=== PATIENT | female | born 2000 | race Caucasian/White ===

== ENCOUNTER 2025-07-10 17:15 | Emergency (ER) | payer OTHER, SELFPAY ==
--- NOTE | ~2025-07-10 | US_ITS ---
CLINICAL HISTORY: vaginal bleeding, approx 6 weeks, 1st preg US OB 1st Trimester transabdominal and transvaginal Comparison: None provided Findings: The uterus is anteverted and anteflexed. Uterus measures 6.8 cm in length. Normal morphology of the uterus. The endometrium measures up to 11 mm with some heterogeneity and tiny cystic areas. No definable gestational sac seen. Right ovary 1.6 x 2.9 x 1.8 cm. Left ovary 1.9 x 3.1 x 1.8 cm. Normal grayscale morphology of both ovaries. No free fluid in the pelvis. IMPRESSION: of unknown location. Differential includes very early , recent spontaneous or ectopic . Recommend serial beta HCG evaluation and follow-up ultrasound in 7 days. This document has been electronically signed by: Akira Fletcher MD on 07/10/2025 19:41:03
[2025-07-10 17:27] VITALS: BP 144/70; PULSE 92; RESP 18; TEMP 36.4; O2SAT 100; BMI 26.6
--- NOTE | 2025-07-10 17:28 | ED_ITS ---
HPI - General Adult General Chief complaint: Vaginal Bleeding Stated complaint: 5/6 weeks , bleeding Time Seen by Provider: 07/10/25 22:52 Source: patient Limitations: no limitations History of Present Illness ED Provider: Laureen Graff PA-C HPI narrative: 25-year-old female presents with concerns for miscarriage. Patient is a approximately 6 weeks , she began to have vaginal bleeding, consisting of spotting this morning. She passed an isolated small mucousy clot. Associated pelvic cramping. This is her 1st . She has pending follow up with her manager of sales. There has been no escalation of the bleeding. Related Data Allergies Allergy/AdvReac Type Severity Reaction Status Date / Time amoxicillin Allergy Hives Verified 07/10/25 17:32 Penicillins Allergy Hives Verified 07/10/25 17:31 Review of Systems 2 Review of Systems: Yes all other systems are reviewed and are negative Constitutional: Constitutional: Denies fatigue and Denies fever(s) Cardiovascular: Cardiovascular: Denies chest pain and Denies dyspnea Respiratory: Respiratory: Denies dyspnea Gastrointestinal: Gastrointestinal: Reports GI cramping, Denies nausea and Denies vomiting Genitourinary: Genitourinary: Reports pelvic pain and Denies vaginal discharge Comments: Spotting Endocrine: Endocrine: Denies fatigue PMFSH Past Medical History Attestation statement: The following information was validated with the patient. Social History Social History Advance Directives: No Advance Directives Information Provided: No Do you have a plan to hurt others: No Plan Physical Exam ED Vital Signs: Vital Signs - 24 hr 07/10/25 17:27 07/10/25 22:20 Temperature 97.5 F 98.3 F Pulse Rate 92 75 Respiratory Rate 18 17 Blood Pressure 144/70 H 129/80 Pulse Oximetry 100 100 Oxygen Delivery Method Room Air Room Air BMI result Body Mass Index 26.6 Const Other: Alert well-appearing Orientation/consciousness: patient oriented x3 Resp Effort & Inspection: normal respiratory effort Cardio Other: Normal peripheral perfusion GI Other: Soft nondistended nontender Other: Defer Skin Other: Warm dry no rash Neuro General: patient oriented x3, gait normal, no focal motor deficits and CN's II- XI intact bilaterally Psych Other: Tearful, cooperative Course Course Course Narrative: Rapid medical examination performed in triage by Chela Tellez PA-C: Patient is a 25 year old female presenting to the emergency department with vaginal bleeding + abdominal cramping. Patient states she is approximately 6 weeks and is now having bleeding and cramping. Detailed physical exam and review of systems are deferred to the practice clinician. Labs and imaging. Patient placed back in the waiting room pending room availability and results. Medical Decision Making Medical Decision Making [facility] Narrative: 25-year-old female presents with concerns for miscarriage. Patient is a approximately 6 weeks , she began to have vaginal bleeding, consisting of spotting this morning. She passed an isolated small mucousy clot. Associated pelvic cramping. This is her 1st . She has pending follow up with her manager of sales. There has been no escalation of the bleeding. Problem: Early History: Per patient is I have considered the following differential diagnoses: Subchorionic hemorrhage, threatened , ectopic, symptoms of early Plan: Screening labs including a beta hCG, transvaginal ultrasound obtained, this is either miscarriage versus early just not visualizing IUP versus on found ectopic. She requires follow up within a week for repeat transvaginal and serial hCG. The neglected to add on ABO Rh, we will do so in the event she requires RhoGAM. I have independently reviewed the following tests: Labs: No leukocytosis, not anemic, beta hCG 631, urine not infected, passing blood, which is likely vaginal source, A+ blood type Transvaginal ultrasound:Findings: The uterus is anteverted and anteflexed. Uterus measures 6.8 cm in length. Normal morphology of the uterus. The endometrium measures up to 11 mm with some heterogeneity and tiny cystic areas. No definable gestational sac seen. Right ovary 1.6 x 2.9 x 1.8 cm. Left ovary 1.9 x 3.1 x 1.8 cm. Normal grayscale morphology of both ovaries. No free fluid in the pelvis. IMPRESSION: of unknown location. Differential includes very early , recent spontaneous or ectopic . Recommend serial beta HCG evaluation and follow-up ultrasound in 7 days. Differential Diagnosis Differential Diagnoses: The differential diagnosis associated with the presentation includes See [facility] Admission/Observation Consideration of admission/observation: Escalation of care including admission/observation considered Not applicable Lab Data [facility] Lab Attestation statement: I reviewed the patient's lab results. 07/10/25 17:51 07/10/25 17:51 Labs: Lab Results 07/10/25 07/10/25 07/10/25 Range/Units 17:51 22:30 23:21 WBC 9.8 (4.8-10.8) X10*3/uL RBC 5.09 (4.20-5.50) X10*6/uL Hgb 14.4 (12.0-16.0) g/dl Hct 44.9 (37.0-47.0) % MCV 88.2 (80.0-98.0) fL MCH 28.3 (27.0-33.0) pg MCHC 32.1 (31.0-35.0) g/dl RDW 13.2 (11.0-16.0) % Plt Count TNP MPV 11.2 (9.4-12.3) fL Immature Gran % (Auto) 0.3 (0.0-0.4) % Neut % (Auto) 66.0 (45-73) % Lymph % (Auto) 25.4 (20-40) % Fillmore % (Auto) 6.2 (2-11) % Eos % (Auto) 1.4 (0-4) % Baso % (Auto) 0.7 (0-2) % Lymph # (Auto) 2.5 (1.2-4.9) X10*3/uL Fillmore # (Auto) 0.6 (0.1-1.2) X10*3/uL Eos # (Auto) 0.1 (0.0-0.4) X10*3/uL Baso # (Auto) 0.1 (0.0-0.2) X10*3/uL Abs Immat Gran (auto) 0.03 (0.00-0.03) X10*3/uL Absolute Neuts (auto) 6.4 (2.0-8.3) x10*3/uL Absolute Nucleated RBC 0.000 (0.0-0.012) X10*3/uL Nucleated RBC % (auto) 0.0 (0.0-0.2) /100WBC Smear Tech's Comments VERIFIED PT 12.1 (11.2-13.5) SEC INR 1.0 (0.9-1.1) Sodium 141 (135-145) mmol/L Potassium 4.1 (3.3-5.1) mmol/L Chloride 108 (96-108) mmol/L Carbon Dioxide 24 (22-29) mmol/L Anion Gap 13 (12-20) BUN 8 L (9-16) mg/dL Creatinine 0.59 (0.5-1.4) mg/dL Estim Creat Clear Calc 145.4 Estimated GFR > 60 Random Glucose 113 (60-115) mg/dL Calcium 9.6 (8.4-10.2) mg/dL Total Bilirubin 0.4 (0.0-1.0) mg/dL AST 18 (5-31) U/L ALT 18 (0-31) U/L Alkaline Phosphatase 66 (39-117) U/L Total Protein 7.3 (6.5-8.0) g/dL Albumin 4.6 (3.5-5.0) g/dL Beta HCG, Quant 631 mIU/mL Urine Color Yellow Urine Appearance Cloudy Urine pH 5.5 (5.0-9.0) Ur Specific Brinson >= 1.030 H (1.005-1.025) Urine Protein Trace (Neg-Trace) mg/dL Urine Glucose (UA) Negative (Negative) mg/dL Urine Ketones 15 (Negative) mg/dL Urine Blood Large (3+) H (Negative) Urine Nitrite Negative (Negative) Ur Leukocyte Esterase Trace H (Negative) Urine RBC 6-10 H (0-2) /HPF Urine WBC 0-5 (0-5) /HPF Ur Squamous Epith Cells 6-10 (0-2) /HPF Urine Bacteria 1+ (None Seen) Hyaline Casts 3-5 (0-2) /LPF Blood Type A Positive Radiology Impression Discussion of test interpretation with radiology: I have reviewed the radiologist's reading. Discharge Plan Discharge Clinical Impression: Vaginal bleeding Patient Disposition: Home, Self-Care Instructions: Abnormal (Dysfunctional) Uterine Bleeding (ED) Additional Instructions: At this point, the location of your is unknown. We simply may not be able to visualize an intrauterine if this is very early . You could also have what is called an ectopic , which is a that is developing outside the uterus. You could also be miscarrying at this time. Transvaginal ultrasound results are below. You need to call your manager of sales tomorrow for serial beta hCG levels, and to have a repeat ultrasound in 7 days. Your beta hCG today was 631 Transvaginal ultrasound:Findings: The uterus is anteverted and anteflexed. Uterus measures 6.8 cm in length. Normal morphology of the uterus. The endometrium measures up to 11 mm with some heterogeneity and tiny cystic areas. No definable gestational sac seen. Right ovary 1.6 x 2.9 x 1.8 cm. Left ovary 1.9 x 3.1 x 1.8 cm. Normal grayscale morphology of both ovaries. No free fluid in the pelvis. IMPRESSION: of unknown location. Differential includes very early , recent spontaneous or ectopic . Recommend serial beta HCG evaluation and follow-up ultrasound in 7 days. Return precaution for the onset of heavy vaginal bleeding, where you are soaking through a pad less than an hour, if you develop heavy vaginal bleeding, seek medical attention as soon as possible Stand Alone Forms: Work/School Release Interventions: ED Discharge Assessment Last Done: 07/11/25 00:54 Discharge Date/Time: 07/11/25 00:54 Print Language: Nigerien
--- OUTSIDE RECORDS SUMMARY | 2025-07-10 18:01 | XMS_ITS | Data Portability ---
Author Organization [facility] Address [address] [place] [address] Assessment No assessment recorded. Plan of Treatment Reminders Order Date Submit Date Provider Last Modified By Organization Details Last Modified Time Details Appointments None recorded. Lab rapid strep group A, throat 2022 023 [email or web address] _[facility], [address] [place] [address], [id number], 13:43:07 Referral None recorded. Procedures None recorded. Surgeries None recorded. Imaging None recorded. Medication Orders doxycycline hyclate 100 mg capsule 2022 023 [id number], [address] [place], [address], 13:43:07 Patient TargetsNo targets recorded. Patient Instructions Encounter Date Encounter Id Patient Instructions Last Modified By Organization Details Last Modified Time 02/02/2023 [id number] Acute Sinusitis: Care Instructions [email or web address] Not available 02/02/2023 13:43:05 Reason for Referral None Reported. Results Created Date Observation Date Name Description Value Unit Range Abnormal Flag Note LastModifiedBy Organization Detail LastModifiedTime 02/03/2002/02/2023 rapid strep group A, throa t Unknown Analyte negati ve Not Available [address], [address], 02/02/2023 13:12:55 02/03/2002/02/2023 rapid strep group A, throa t Unknown Analyte normal Not Available [facility] [place], [address], 02/02/2023 13:12:55 02/03/2002/02/2023 rapid strep group A, throa t Unknown Analyte yes Not Available [id number] [facility] [address] [place], [address], 02/02/2023 13:12:55 Result Notes None recorded. Problems No Known Problems Medical Equipment None Reported. Allergies Allergen ID Allergen Name Allergen Category Reaction Reaction Severity Criticality Documentation Date Start Date Code Code System Note Provider Name and Address Organization Details Recorded Time 433967 Product containin g penicilli n (product) medicatio n Not available Not available Not available 02/02/2023 [id number] SNOMED BALDEMAR berry PA Nicko [facility] 13:10:38 Medications Name Sig Start Date Stop Date Status Note LastModified by Organization Details LastModified Time doxycycline hyclate 100 mg capsule TAKE 1 CAPSULE BY MOUTH TWICE A DAY FOR 10 DAYS active Not Available Not Available No t Available Vitals Date Recorded Body height Body mass index (BMI) Body weight Oxygen saturation Heart rate Respiratory rate Body temperature Systolic And Diastolic Provider Name and Address Organization Details Last Updated DateTime 165.1 cm 25.8 kg/m2 73799.8 2 g 98 % 87 /min 18 /min 99 [degF] 133/94 mm[Hg] BALDEMAR Maharaj [facility] 13:12:42 Social History Question Answer Notes LastModified by Organizat ion Details LastModified Time Tobacco Smoking Status Never Smoker BALDEMAR berry PA [facility] 02/02/2023 13:11:00 Which Illicit Or Recreational Drugs Have You Used? Marijuana Information not available 02/02/2023 Have You Had Direct Contact, Or Contact During Intimacy, With Monkeypox Rash, Scabs, Or Body Fluids From A Person With Monkeypox? No Information not available 02/02/2023 Have You Recently Traveled Abroad? No Information not available 02/02/2023 Are You Currently In School? No Information not available 02/02/2023 Sex: Unknown Functional Status Question Answer Note LastModified by Organizat ion Details LastModified Time Do you use any illicit or recreational drugs? Yes Information not available 02/02/2023 Do you or have you ever used any other forms of tobacco or nicotine? No Information not available 02/02/2023 What is your level of alcohol consumption? Occasional Information not available 02/02/2023 Are you currently employed? Yes Information not available 02/02/2023 Mental Status None recorded. Family History Relationship Description Onset Age of this Age Resolved Age Notes LastModified by Organization Details LastModified Time Father No current problems or disability Not available 01/12 13:10:47 Mother No current problems or disability Not available 01/12 13:10:47 Medical History No medical history recorded. Gynecological History Statement/Question Response Date of LMP 01/03/2023 Is there any chance of ? No Obstetrics History GPAL:G 0 P 0 0 0 0 Immunizations Vaccine Type Date Status Note Provider Nam e and Address Organization Details Recorded Time COVID-19, mRNA, LNP-S, PF, 30 mcg/0.3 mL dose 02/12/2021 completed BALDEMAR berry, [place] - [facility] 02/02/2023 13:10:29 COVID-19, mRNA, LNP-S, PF, 30 mcg/0.3 mL dose 03/10/2021 completed BALDEMAR MARSH null, PA - [facility] 02/02/2023 13:10:29 Past Encounters Encounter ID Performer Location Encounter Start Date Encounter Closed Date Diagnosis/Indication Diagnosis SNOMED-CT Code Diagnosis ICD10 Code Diagnosis IMO Codes Diagnosis Note [id number] [facility] [facility] [address] [place] [address] 08/26/2019 15:50:01 08/26/2019 16:24:02 [id number] Jose Childers MD [facility] [address] [place] [address] 02/02/2023 12:46:10 02/02/2023 13:49:47 Acute sinusitis 25358859 J01.90 - Use the medication s prescribed .- Decongesta nts if tolerated. - Recommend recheck if fever develops or no improvemen t in 5-7 days.- Use saline nasal spray or neti-pot flushes once to twice a day to loosen mucus in sinuses.-. Use a cool mist humidifier in the room that you sleep to add moisture to the air, which should soothe the airways and help loosen any mucus that may be present.-C all 911 or proceed to nearest Emergency Department if you develop shortness of breath, chest pain, severe headache or other symptoms that concern you. Health Concerns Section Related Observation LastModified by Organization Detai ls LastModified Time None Recorded Concern Status LastModified by Organization Details LastModified Time None Recorded Advance Directives Directive None Recorded Payers Insurance Date Sequence Insurance Name Policy Number Policy Araiza Covered Member ID Araiza Member ID Guarantor Name 01/19/2023 1 [facility] [id number] Adriana Dena [id number] Adriana Dena 02/02/2023 1 [facility] PLAN (MEDICAID HMO) [place] Adriana Dena [id number] Adriana Dena Notes Date Note Type Note Provider Name and Address Organization Details Recorded Time 3 text/html Sore throatReported by PatientSore ThroatFor associated symptoms, patient reportssore throat,nasal congestion, andsinus pain/ congestionbut reportsno cough. For source of patient information, patient reportsinformation obtained from patientandpatient arrived at urgent care ambulatory. For location, patient reportsthroat. For severity, patient reportsmild. For quality, patient reportshurts to swallow. For onset/timing, patient reports2 weeks. For context, patient reportsno sick contacts,no foreign travel, andnon-smoker. Jose Childers MD [address] [place], [address], [place] - [facility] 02/02/2023 13:45:49 OBGyn Episode No OBEpisode recorded.
--- OUTSIDE RECORDS SUMMARY | 2025-07-10 18:01 | XMS_ITS | Clinical Summary ---
Author Organization [facility] [address] [facility] Address [address] [place] [address] Phone Care Team Providers Care Records Analyst Name Role Phone Lesley Cole MD Primary Care Provider [phone] Social History Tobacco Use Types Packs/Day Years Used Date Smoking Tobacco: Never Assessed Housing Instability Answer Date Recorde d Are you worried that in the next 2 months you may not have stable housing? No 05/13/2024 Food Access & Nutrition Answer Date Rec orded Do you have access to a vari ety of food including fruits and vegetables? Yes 05/13/2024 Access to Healthcare Answer Date Record ed Within the last 3 months, ho w many times did you visit the emergency department for your medical care? 0 05/13/2024 Health Literacy Answer Date Recorded How often do you need to hav e someone help you when you read instructions, pamphlets, or other written material from your doctor or pharmacy? Never 05/13/2024 Caregiver: How often do you need to have someone help you when you read instructions, pamphlets, or other written material from your doctor or pharmacy? Not on file 05/13/2024 Financial Risk Answer Date Recorded How hard is it for you to pa y for the very basics like food, housing, medical care, and air conditioning / heating? Hard 05/13/2024 Transportation Answer Date Recorded Has the lack of transportati on kept you from meetings, work, or from getting things needed for daily living? No Has the lack of transportati on kept you from medical appointments or from getting medications? No 05/13/2024 Social Isolation Answer Date Recorded How often do you feel lonely or isolated from th ose around you? Often 05/13/2024 Food Risk Answer Date Recorded Within the past 12 months we worried whether our food would run out before we got money to buy more. Sometimes true 024 Within the past 12 months th e food we bought just didn't last and we didn't have money to get more. Never true 05/13/2024 Dependent Care Answer Date Recorded Do you need help finding or paying for care for your loved ones. For example, child nurse or elderly care for an older adult? No 05/13/2024 Education Answer Date Recorded Do you think completing more education or training, like finishing a GED, going to college, or learning a trade, would be helpful for you? N/A 05/13/2024 Employment and Income Answer Date Recor ded During the last four weeks, have you been actively looking for work? Yes 05/13/2024 Living Situation Answer Date Recorded What is your living situation? Unrecognized valu e 05/13/2024 Comments Unknown Sex and Gender Information Value Date Recorded Sex Assigned at Female 05/11/2024 7:53 PM EDT Legal Sex Female 3:43 AM EST Gender Identity Female 05/11/2024 7:53 PM EDT Sexual Orientation Bisexual 05/11/2024 7: 53 PM EDT Plan of Treatment Health Maintenance Due Date Last Done Comments Pneumococcal Vaccine: Pediatrics (0 to 5 Years) and At-Risk Patients (6 to 49 Years) (1 of 1 - PPSV23, PCV20, or PCV21) 01/11/2006 04/14/2001, 2000, 2000, Additional history exists Cervical Cancer Screening: Pap Smear 01/11/2021 DTaP,Tdap,and Td Vaccines (6 - Td or Tdap) 03/22/2021 03/22/2011, 01/16/2005, 2000, Additional history exists HIV Screening 06/16/2022 Hepatitis C Screening 06/16/2022 Depression Screening 07/14/2024 05/13/2024 COVID-19 Vaccine ( season) 2025 03/10/2021, 02/12/2021 Influenza Vaccine (#1) 2025 9, 05/15/2018, 04/24/2017, Additional history exists Social Influencers of Health Screening 05/13/2025 05/13/2024 RSV Immunization Adult Patients (1 - 1-dose 75+ series) 01/11/2075 HIB Vaccines Completed 04/14/2001, 07/14, 2000, Additional history exists Hepatitis B Vaccines Completed 04/14/2001, 2000, 2000 MMR Vaccines Completed 01/16/2005, 2001 IPV Vaccines Completed 01/26/2005, 02/2001, 2000, Additional history exists Varicella Vaccines Completed 03/22/2011, 2001 HPV Vaccines Completed 01/07/2014, 08/14, 03/04/2013 Meningococcal ACWY Vaccine Completed 03/27/2016, Hepatitis A Vaccines Completed 11/03/2017, 04/24/20 17 Meningococcal B Vaccine Aged Out No l onger eligible based on patient's age to complete this topic RSV Immunization Patients Under 20 months Aged Out No longer eligible based on patient's age to complete this topic Insurance [facility] Care Teams Records Analyst Relationship Specialty Start Date End Date Lesley Cole MD [facility] 01/23/24
[2025-07-10 18:04] LABS: Lymphocytes Absolute Auto 2.5 X10*3/uL (1.2-4.9); Mean Corpuscular HGB Conc 32.1 g/dl (31.0-35.0); NRBC Abs Auto 0.000 X10*3/uL (0.0-0.012); NRBC Pct Auto 0.0 /100WBC (0.0-0.2); PLT CLUMP 1; SCAN SMEAR FLAG 1
[2025-07-10 18:06] LABS: Hematocrit 44.9 % (37.0-47.0); Hemoglobin 14.4 g/dl (12.0-16.0); INTERNATIONAL NORM RATIO 1.0 (0.9-1.1); Imm Gran Abs Auto 0.03 X10*3/uL (0.00-0.03); Imm Gran Pct Auto 0.3 % (0.0-0.4); MANUAL DIFF FLAG SCAN; Mean Corpuscular Hemoglobin 28.3 pg (27.0-33.0); Mean Corpuscular Volume 88.2 fL (80.0-98.0); Prothrombin Time 12.1 SEC (11.2-13.5); Red Blood Count 5.09 X10*6/uL (4.20-5.50)
[2025-07-10 18:23] LABS: Alanine Aminotransferase 18 U/L (0-31); Albumin Level 4.6 g/dL (3.5-5.0); Alkaline Phosphatase 66 U/L (39-117); Anion Gap 13 (12-20); Aspartate Amino Transferase 18 U/L (5-31); Blood Urea Nitrogen 8 mg/dL (9-16); Calcium 9.6 mg/dL (8.4-10.2); Carbon Dioxide 24 mmol/L (22-29); Chloride 108 mmol/L (96-108); Creatinine Clr Calc Pharmacy 145.4; Estimated Glomerular Filt Rate > 60; Potassium 4.1 mmol/L (3.3-5.1); Sodium 141 mmol/L (135-145); Total Protein 7.3 g/dL (6.5-8.0)
[2025-07-10 18:24] LABS: White Blood Count 9.8 X10*3/uL (4.8-10.8)
[2025-07-10 22:20] VITALS: BP 129/80; PULSE 75; RESP 17; TEMP 36.8; O2SAT 100
--- NOTE | 2025-07-10 22:21 | MHC.EDTECH ---
@ THIS TIME URINE CUP PROVIDER TO THE PT. INSTRUCTIONS TO RING HER CALL MOSS WHEN ABLE TO COMPLETE URINE SAMPLE
[2025-07-10 22:37] LABS: Appearance Urine Cloudy; Glucose Urine UA Negative (Negative); PH 5.5 (5.0-9.0); Specific Gravity - Urine >= 1.030 (1.005-1.025); UMIC TRIGGER UACC YES
[2025-07-11 00:54] VITALS: BP 129/80; PULSE 75; RESP 17; TEMP 36.8; O2SAT 100
== END 2025-07-11 00:54 | disposition home or self-care (01) ==
PROVIDERS: Physician Assistant Medical; Emergency Provider Emergency Medicine
DX: O20.9 Hemorrhage in early pregnancy, unspecified (principal); Z3A.01 Less than 8 weeks gestation of pregnancy; R10.9 Unspecified abdominal pain
CPT/HCPCS: 36415; 76801; 76817; 80053; 81001; 84702; 85025; 85610; 86900; 86901; 99284

== ENCOUNTER → 2025-07-10 17:29 | Outpatient (BNV) | payer OTHER, SELFPAY | PROVIDERS: Visit Provider Radiology Diagnostic Radiology | DX: O26.851 Spotting complicating pregnancy, first trimester (principal); N93.8 Other specified abnormal uterine and vaginal bleeding; Z3A.01 Less than 8 weeks gestation of pregnancy | CPT/HCPCS: 76801; 76817 ==